=== PATIENT | male | born 1965 | race Caucasian/White ===

== ENCOUNTER 2016-07-31 08:28 | Emergency (ER) | payer MEDICAID, OTHER ==
[~2016-07-31] VITALS: Ht 177.8 cm; Wt 120.0 kg
[~2016-07-31 08:28] MED LIST: AMLO5TAB2 PO; BAYE325T PO; CLON0.1T PO; LISI2.5T3 PO
[2016-07-31 08:30] VITALS: BP 174/102; PULSE 92; RESP 20; TEMP 98; O2SAT 97
[2016-07-31 09:39] VITALS: BP 160/99; PULSE 79; RESP 18; O2SAT 98
[2016-07-31 10:25] VITALS: RESP 18; O2SAT 98
[2016-07-31] MEDS: SODIUM CHLORIDE 0.9% FLUSH 5 ML FLUSH IVF PRN ×2 (10:25→11:01)
--- NOTE | 2016-07-31 10:44 | RADRPT ---
EXAM DATE/TIME: 07/31/2016 10:32 [place] COMPARISON: No previous studies available for comparison. INDICATIONS : Short of breath and lower extremity swelling for 4 days. MEDICAL HISTORY : None. SURGICAL HISTORY : None. ENCOUNTER: Initial ACUITY: 4 - 6 days PAIN SCORE: 0/10 LOCATION: Bilateral chest FINDINGS: A single view of the chest demonstrates the lungs to be symmetrically aerated without evidence of mas s, infiltrate or effusion. The cardiomediastinal contours are unremarkable. Osseous structures are intact. CONCLUSION: No acute disease. Adonay Valero MD on July 31, 2016 at 10:42 Board Certified Radiologist. This report was verified electronically.
[2016-07-31 10:47] LABS: AUTOMATED NEUTROPHIL # 4.6 TH/MM3 (1.8-7.7); BASOPHIL % 0.5 % (0.0-2.0); EOSINOPHIL # 0.1 TH/MM3 (0-0.4); HEMATOCRIT 44.4 % (39.0-51.0); HEMO FLAGS DIFF FINAL; LYMPH % 15.8 % (9.0-44.0); MEAN CELL VOLUME 91.9 FL (80.0-100.0); MEAN CORPUSCULAR HEMOGLOBIN 31.9 PG (27.0-34.0); MEAN CORPUSCULAR HGB CONC 34.7 % (32.0-36.0); MONO % 9.6 % (0.0-8.0); NEUT % 73.1 % (16.0-70.0); PLATELET COUNT 212 TH/MM3 (150-450); RED BLOOD COUNT 4.83 MIL/MM3 (4.50-5.90); RED CELL DISTRIBUTION WIDTH 13.5 % (11.6-17.2); WHITE BLOOD COUNT 6.3 TH/MM3 (4.0-11.0)
--- NOTE | 2016-07-31 10:55 | PD ---
HPI . Leg edema Chief Complaint: Edema Time Seen by Provider: 10:18 Travel History International Travel<30 days: No Contact w/Intl Traveler<30days: No Traveled to known affect area: No History of Present Illness HPI This patient actually presents with a multitude of complaints. His chief complaint however is leg edema. He states that the edema is worse after he spent on his feet all day and gets better with rest. He states that it is associated with some shortness of breath. He further states that it is associated with numbness and tingling of his fingers and toes and flushing of his face. He states that his heart rate has been running high. He states that his throat is been feeling funny. He states that he checks his blood pressure continuously and that his blood pressure and heart rate are getting higher and higher and higher. PFSH Past Medical History Cardiovascular Problems: Yes (HTN) Diminished Hearing: No Hypertension: Yes Tetanus Vaccination: > 5 Years Influenza Vaccination: No Social History Alcohol Use: Yes (6 pack daily ) Tobacco Use: Yes (3 cigarrette per day) Substance Use: No Allergies-Medications (Allergen,Severity, Reaction): Coded Allergies: No Known Allergies (Verified , 07/31/16) Reported Meds & Prescriptions Reported Meds & Active Scripts Active Reported Flavio Aspirin (Aspirin) 325 Mg Tab 325 Mg PO DAILY Lisinopril 2.5 Mg Tab 20 Mg PO BID Amlodipine (Amlodipine Besylate) 5 Mg Tab 5 Mg PO BID Review of Systems Except as stated in HPI: all other systems reviewed are Neg General / Constitutional: No: Fever HENT: Positive: Other (funny sensation in his throat) Cardiovascular: Positive: Palpitations Respiratory: Positive: Shortness of Breath Musculoskeletal: Positive: Edema Skin: Positive Other (redness of his lower extremities and flushing of his face ) Neurologic: Positive: Paresthesia (in his fingers and toes) Physical Exam Narrative GENERAL: Healthy-appearing man in no acute distress. SKIN: Warm and dry. Some mild redness of his lower extremities with no warmth. HEAD: Atraumatic. Normocephalic. EYES: Pupils equal and round. ENT: No nasal bleeding or discharge. Mucous membranes pink and moist. NECK: Trachea midline. CARDIOVASCULAR: Regular rate and rhythm. Heart sounds are normal. RESPIRATORY: No accessory muscle use. Lungs are clear with full air movement throughout. GASTROINTESTINAL: Abdomen soft, non-tender, nondistended. MUSCULOSKELETAL: No obvious deformities. Trace nonpitting edema of the lower extremities. NEUROLOGICAL: Awake and alert. No obvious cranial nerve deficits. Motor grossly within normal limits. Normal speech. PSYCHIATRIC: Appropriate mood and affect; insight and judgment normal. Data Data Last Documented VS Vital Signs Date Time Temp Pulse Resp B/P Pulse Ox O2 Delivery O2 Flow Rate FiO2 07/31/16 11:02 84 18 138/83 99 Room Air 07/31/16 08:30 98.0 Orders Complete Blood Count With Diff (07/31/16 10:18) Comprehensive Metabolic Panel (07/31/16 10:18) B-Type Natriuretic Peptide (07/31/16 10:18) Magnesium (Mg) (07/31/16 10:18) Ckmb (Isoenzyme) Profile (07/31/16 10:18) Troponin I (07/31/16 10:18) Iv Access Insert/Monitor (07/31/16 10:18) Electrocardiogram (07/31/16 10:18) Ecg Monitoring (07/31/16 10:18) Oximetry (07/31/16 10:18) Oxygen Administration (07/31/16 10:18) Chest, Single Ap (07/31/16 10:18) Sodium Chloride 0.9% Flush (Ns Flush) (07/31/16 10:30) Lorazepam Inj (Ativan Inj) (07/31/16 11:00) CKMB (07/31/16 10:20) CKMB% (07/31/16 10:20) Labs Laboratory Tests Test 07/31/16 10:20 White Blood Count 6.3 TH/MM3 Red Blood Count 4.83 MIL/MM3 Hemoglobin 15.4 GM/DL Hematocrit 44.4 % Mean Corpuscular Volume 91.9 FL Mean Corpuscular Hemoglobin 31.9 PG Mean Corpuscular Hemoglobin 34.7 % Concent Red Cell Distribution Width 13.5 % Platelet Count 212 TH/MM3 Mean Platelet Volume 6.8 FL Neutrophils (%) (Auto) 73.1 % Lymphocytes (%) (Auto) 15.8 % Monocytes (%) (Auto) 9.6 % Eosinophils (%) (Auto) 1.0 % Basophils (%) (Auto) 0.5 % Neutrophils # (Auto) 4.6 TH/MM3 Lymphocytes # (Auto) 1.0 TH/MM3 Monocytes # (Auto) 0.6 TH/MM3 Eosinophils # (Auto) 0.1 TH/MM3 Basophils # (Auto) 0.0 TH/MM3 CBC Comment DIFF FINAL Differential Comment Sodium Level 139 MEQ/L Potassium Level 3.9 MEQ/L Chloride Level 107 MEQ/L Carbon Dioxide Level 25.1 MEQ/L Anion Gap 7 MEQ/L Blood Urea Nitrogen 9 MG/DL Creatinine 0.69 MG/DL Estimat Glomerular Filtration 122 ML/MIN Rate Random Glucose 86 MG/DL Calcium Level 8.8 MG/DL Magnesium Level 2.0 MG/DL Total Bilirubin 0.7 MG/DL Aspartate Amino Transf 23 U/L (AST/SGOT) Alanine Aminotransferase 43 U/L (ALT/SGPT) Alkaline Phosphatase 63 U/L Total Creatine Kinase 122 U/L Creatine Kinase MB 0.7 NG/ML Troponin I LESS THAN 0.02 NG/ML B-Type Natriuretic Peptide 15 PG/ML Total Protein 7.6 GM/DL Albumin 3.7 GM/DL MDM Medical Decision Making Medical Screen Exam Complete: Yes Emergency Medical Condition: Yes Interpretation(s) This EKG shows a sinus rhythm with no ST segment elevation or depression. Differential Diagnosis Differential diagnosis of dyspnea includes but is not limited to congestive heart failure, pneumonia, wheezing, pneumothorax, pulmonary embolism. Narrative Course Patient presents for evaluation and treatment of lower extremity swelling and shortness of breath, paresthesias, palpitations. I think that there is probably a component of anxiety. I will give him some Ativan while pending his workup. Chest x-ray is negative to the radiologist's interpretation. Chest x-ray was independently viewed by me. CBC & BMP Diagram 07/31/16 10:20 CK-MB is 0.7. Troponin is less than 0.02. BNP is 15. No cardiac etiology for the patient's presentation has been found. Diagnosis Primary Impression: Edema Qualified Code: R60.9 - Edema, unspecified type Additional Impression: Dyspnea Qualified Code: R06.01 - Orthopnea Additional Instructions: Follow-up with your primary care provider for further evaluation. Disposition: 01 DISCHARGE HOME Condition: Stable Kendra De La Cruz MD Jul 31, 2016 10:54
[2016-07-31] MEDS ORDERED: LORazepam 2 MG/ML VIAL IV PUSH ONE (11:00)
[2016-07-31 11:02] VITALS: BP 138/83; PULSE 84; RESP 18; O2SAT 99
[2016-07-31 11:08] LABS: ALT (GPT) 43 U/L (12-78); ANION GAP 7 MEQ/L (5-15); AST (GOT) 23 U/L (15-37); BICARBONATE 25.1 MEQ/L (21.0-32.0); BLOOD UREA NITROGEN 9 MG/DL (7-18); CHLORIDE 107 MEQ/L (98-107); GLOMERULAR FILTRATION RATE 122 ML/MIN (>89); POTASSIUM 3.9 MEQ/L (3.5-5.1); SODIUM (NA) 139 MEQ/L (136-145)
[2016-07-31 11:12] LABS: ALKALINE PHOSPHATASE 63 U/L (45-117); CREATINE KINASE 122 U/L (39-308); TOTAL BILIRUBIN ADULT 0.7 MG/DL (0.2-1.0)
[2016-07-31 11:25] LABS: CKMB 0.7 NG/ML (0.5-3.6)
[2016-07-31 12:18] VITALS: BP 130/81; TEMP 97.8
--- NOTE | 2016-08-01 06:45 | EKG ---
Date Performed: 07/31/2016 Time Performed: 10:43:32 PTAGE: 50 years EKG: Sinus rhythm NORMAL ECG PREVIOUS TRACING : 04/30/2016 13.37 Compared to prior tracing no significant change DOCTOR: Ray Mendoza Interpretating Date/Time 08/01/2016 06:43:02
== END 2016-07-31 12:18 | disposition home or self-care (01) ==
LOC: NEPB 08:28
DX: R60.0 Localized edema (principal); R06.01 Orthopnea; R20.2 Paresthesia of skin; R23.2 Flushing; R00.2 Palpitations; I10 Essential (primary) hypertension; Z72.0 Tobacco use; Z86.79 Personal history of other diseases of the circulatory system
CPT/HCPCS: 71010; 80053; 82550; 82552; 83735; 83880; 84484; 85025; 93005; 96374; 99285; J2060